=== PATIENT | female | born 1995 | race Caucasian/White ===

== ENCOUNTER 2017-01-25 19:21 | Emergency (ER) | payer SELFPAY ==
--- NOTE | 2017-01-26 02:42 | ER ---
ADMIT: 01/25/2017 RM/LOC: ER [facility] MR#: [id number] [facility] [address] [place], [place] [id number] KERA FELDMAN [address] [place], [place] [id number] Emergency Room Report SEX: F AGE: 21 : 1995 DATE: 01/25/2017 TIME: 1921 hours. Please refer to my T-sheet for complete H and P. Briefly, the patient is 21-year-old who was working with a screwdriver when she hit it into her right thumb nail bed with a lot of force. It happened just prior. She rates pain as an 8/10. Comes in for evaluation. PHYSICAL EXAMINATION: VITAL SIGNS: Stable. EXTREMITIES: Her right thumb has a screwdriver injury to the thumb nail. It does look like it does go through the nail but it is in the straight and clean area. It is neurovascularly intact distally. EMERGENCY DEPARTMENT COURSE: X-ray of right thumb revealed slight irregularity of the distal tuft with a probable nondisplaced fracture. She was given Motrin 800 p.o. and Keflex 500 p.o., ready for discharge. ASSESSMENT: 1. Right thumb contusion with a cut in the nail bed from the screwdriver. 2. Small nondisplaced tuft fracture. PLAN: Keep clean and dry. Keflex 500 t.i.d. for 5 days. Return if worse. Follow up with Dr. Marco A Michelle as needed. Phill Guevara MD/ bushra JOB #: [id number] CC: Phill Guevara MD, Attending Physician
== END 2017-01-25 20:39 | disposition home or self-care (01) ==
LOC: ER 19:21
DX: S62.524A Nondisplaced fracture of distal phalanx of right thumb, initial encounter for closed fracture (principal); F17.210 Nicotine dependence, cigarettes, uncomplicated; W27.0XXA Contact with workbench tool, initial encounter; Y92.009 Unspecified place in unspecified non-institutional (private) residence as the place of occurrence of the external cause